=== PATIENT | female | born 1965 | race Caucasian/White ===

== ENCOUNTER 2020-05-24 09:06 | Day surgery (SDC) | payer BC, OTHER ==
[2020-05-19 11:43] LABS: HEMATOCRIT 39.3 % (36.0-47.0); HEMOGLOBIN 13.1 g/dL (12.0-15.5); MEAN CORPUSCULAR HEMOGLOBIN 31.6 pg (27.0-33.4); MEAN CORPUSCULAR HGB CONC 33.3 g/dL (32.0-36.0); MEAN CORPUSCULAR VOLUME 95 fl (80-97); PLATELET COUNT 395 10^3/uL (150-450); RED BLOOD COUNT 4.14 10^6/uL (3.72-5.28); RED CELL DISTRIBUTION WIDTH 16.7 % (11.5-14.0); WHITE BLOOD COUNT 6.9 10^3/uL (4.0-10.5)
[2020-05-19 11:51] LABS: INTERNATIONAL RATION (INR) 0.89; PROTHROMBIN TIME 12.3 SEC (11.4-15.4)
[2020-05-19 11:52] LABS: PARTIAL THROMBOPLASTIN TIME 31.4 SEC (23.5-35.8)
[2020-05-19 12:07] LABS: APPEARANCE,URINE CLEAR; BILIRUBIN,URINE NEGATIVE (NEGATIVE); COLOR,URINE YELLOW; GLUCOSE, URINE NEGATIVE (NEGATIVE); KETONES,URINE NEGATIVE (NEGATIVE); LEUKOCYTE ESTERASE,URINE NEGATIVE (NEGATIVE); NITRITE,URINE NEGATIVE (NEGATIVE); PROTEIN,URINE NEGATIVE (NEGATIVE); URINE SPECIFIC GRAVITY 1.011; UROBILINOGEN,URINE NEGATIVE mg/dL (<2.0)
--- NOTE | 2020-05-19 12:46 | EKG REPORT ---
SEVERITY:- NORMAL ECG - SINUS RHYTHM : Confirmed by: Adrian Herrera MD 19-May-2020 12:46:19
--- NOTE | 2020-05-19 12:58 | RADIOLOGY REPORT (SQ) ---
EXAM DESCRIPTION: CHEST PA/LATERAL IMAGES COMPLETED DATE/TIME: 05/19/2020 11:28 am REASON FOR STUDY: PRE-OP COMPARISON: None. EXAM PARAMETERS: NUMBER OF VIEWS: two views TECHNIQUE: Digital Frontal and Lateral radiographic views of the chest acquired. RADIATION DOSE: NA LIMITATIONS: none FINDINGS: LUNGS AND PLEURA: No opacities, masses or pneumothorax. No pleural effusion. MEDIASTINUM AND HILAR STRUCTURES: No masses or contour abnormalities. HEART AND VASCULAR STRUCTURES: Heart normal size. No evidence for failure. BONES: No acute findings. HARDWARE: Neurostimulator electrodes in the thoracic spine. OTHER: No other significant finding. IMPRESSION: NO SIGNIFICANT RADIOGRAPHIC FINDING IN THE CHEST. TECHNICAL DOCUMENTATION: JOB ID: [id number] 2010 [email or web address]- All Rights Reserved Reading location - IP/workstation name: [email or web address]
[~2020-05-24 09:06] MED LIST: CEFAZOLIN 1 GM/D5W RTU 1 GM/50 ML RTUPB IV PRN; LACTATED RINGERS 1000 ML IV PRN
[2020-05-24] MEDS ORDERED: CEFAZOLIN 1 GM/D5W RTU 1 GM/50 ML RTUPB IV ONE (10:16)
[2020-05-24] MEDS ORDERED: TRIAMCINOLONE ACETONIDE INJ 40 MG/1 ML VIAL ONE (10:37)
[2020-05-24] MEDS ORDERED: LIDOCAINE 1% INJ-PF (10 MG/ML) 30 ML SDV ONE (10:37)
[2020-05-24] MEDS ORDERED: SODIUM BICARBONATE 4.2% INJ (2.5 MEQ/5 ML) VIAL ONE (10:37)
[2020-05-24] MEDS ORDERED: BUPIVACAINE HCL 0.25% /EPINEPHRINE INJ/PF 30 ML SDV ONE (10:37)
[2020-05-24] MEDS ORDERED: KETAMINE HCL INJ 500 MG/10 ML VIAL ONE (11:02)
[2020-05-24] MEDS ORDERED: MIDAZOLAM 2 MG/2 ML INJ ONE ×2 (11:02→12:37)
[2020-05-24] MEDS ORDERED: PROPOFOL INJ 200 MG/20 ML VIAL IV ONE (11:03)
[2020-05-24] MEDS ORDERED: HYDROMORPHONE HCL INJ/PF 2 MG/ML AMPULE ONE (11:03)
[2020-05-24] MEDS ORDERED: CEFAZOLIN INJ 1 GM VIAL ONE (13:01)
--- NOTE | 2020-05-24 13:18 | Operative Report ---
Operative Report DATE OF SURGERY: 05/24/20 PREOPERATIVE DIAGNOSIS: 1. Postlaminectomy pain syndrome #2 non-functioning sp inal cord stimulator system POSTOPERATIVE DIAGNOSIS: same OPERATION: 1 revision of spinal cord stimulator system, explantation of existing system, with implantation new system/[employer] #2 complex reprogramming #3 fluoroscopy for lead placement SURGEON: EVELYN JHA 1ST EDITORIAL DIRECTOR: MENDOZA OWENS ANESTHESIA: LMAC TISSUE REMOVED OR ALTERED: Existing spinal cord stimulation system was removed and discarded COMPLICATIONS: None ESTIMATED BLOOD LOSS: Minimal INTRAOPERATIVE FINDINGS: New spinal cord system with dual electrode leads placed at the top of the T8 vertebral body to the top of the T9 vertebral body PROCEDURE: Date of Surgery: May 24, 2020 Preoperative Diagnosis: 1. Faliure of in-situ Spinal Cord Stimulator Device. 2. Post Laminectomy Pain Syndrome Postoperative Diagnosis:Same Procedure: 1. Removal of existing spinal cord stimulator system. 2. SCS Electrode Placement with Impulse Generator. 3. Complex Reprogramming. 4. Fluoroscopic guidance for lead placement. Surgeon: Evelyn Jha MD Court Specialist: Mendoza Owens MD Anesthesia: MAC Complications: None Procedure Detail: After obtaining informed consent and advising the patient of the risks and benefits, including serious neurological injury, bleeding and infection, allergic reaction and , the patient was taken to the operating room. After discussion with the patient, the previous incision sites were marked. The patient was then prepped with chlorhexidine with a suitable drying time prior to draping. The patient was evaluated under fluoroscopy in the AP view. The anchor sites for the existing leads were marked. An midline incision was marked to allow adequate exposure of the existing leads. An additional incision was made over the left buttock where the existing implantable pulse generator was in place. The skin overlying both the midline and IPG sites were anesthetized with 1% lidocaine with bicarbonate, followed by bupivacaine 0.25% with epinephrine. Beginning with the pocket incision a 15 blade scalpel was utilized to expose the existing implantable pulse generator. This was easily removed from the pocket and the leads were disconnected from the IPG. Attention was then turned to the midline incision. Sharp and blunt dissection were performed down to the underlying fascia. Once the pre-existing anchors and leads were exposed the anchors were excised and the leads were easily removed. At this juncture the deep tissues were anesthetized with 1% buffered lidocaine using a 3.5 inch spinal needle. Then, using a left paramedian approach, a 14 gauge Tuohy needle was placed in the epidural space at the T11/12 using a loss or resistance to saline technique. A second needle using a right paramedian approach was placed in the epidural space in the same manner. An electrode was inserted through each needle and advanced under serial fluoroscopy views to the top of T8 vertebral body on the right and left. After placement, lateral imaging was obtained for appropriate posterior position in the epidural space. The leads were then tested and appropriate stimulation was found after discussion with the patient. The leads were then secured using 0-Mersilene pursetrings with anchors in place. The anchors were then sututred in place. The needles were remove sequentially under fluoroscopic guidance. The anchors and pursestrings were secured. While lead positioning was occurring, Dr. Owens was assisting revising the pocket for the pulse generator. As soon as the pocket was made, proper hemostasis was confirmed. The skin between the midline and IPG pocket was then anesthetized with 1% lidocaine. A tunneling tool was then utilized to bring the midline electrodes to the IPG pocket. Both sites were then inspected with appropriate hemostasis. The wires were easily placed in the midline, stitched to the pocket, connected to the pulse generator which was then tested with appropriate communication. All connections were then secured and confirmed. The generator was connected to the electrodes. All hex nuts were secured. The generator was placed in the pocket and impedance was tested and was felt to be satisfactory. Good connectivity with the new generator was obtained. The wounds were then copiously irrigated with Betadine containing irrigation solution. The sites were then closed with interrupted vertical mattress sutures with 3-0 Polysorb. The skin came together nicely. The region was cleansed again followed by placement of dermabond tape and cement. When this was dry, suitable tegaderm sponge dressings were placed. The patient was then taken back to PACU for postoperative care and monitoring.
[2020-05-24] MEDS ORDERED: OXYCODONE-ACETAMINOPHEN 5-325 MG TABLET PO PRN (14:03)
--- NOTE | 2020-05-24 14:12 | RADIOLOGY REPORT (SQ) ---
EXAM DESCRIPTION: NO CHG FLUORO; THORACOLUMBAR SPINE AP/LAT IMAGES COMPLETED DATE/TIME: 05/24/2020 1:46 pm REASON FOR STUDY: SPINAL STIMULATOR PLCMT ASSISTED WITH FLUORO IN OR M96.1 POSTLAMINECTOMY SYNDROME , NOT ELSEWHERE CLASSIFIED COMPARISON: None. FLUOROSCOPY TIME: 5.7 minutes 12 images saved to PACS. TECHNIQUE: Intra-operative images acquired during surgical procedure to evaluate progress. NUMBER OF IMAGES: 12 LIMITATIONS: None. FINDINGS: Thoracic neurostimulator placement. IMPRESSION: IMAGE(S) OBTAINED DURING PROCEDURE. COMMENT: Quality ID [id number]: Final reports for procedures using fluoroscopy that document radiation exp osure indices, or exposure time and number of fluorographic images (if radiation exposure indices are not available) Please consult full operative report of the attending physician for description of the procedure. TECHNICAL DOCUMENTATION: JOB ID: [id number] 2010 [employer]- All Rights Reserved Reading location - IP/workstation name: [email or web address]
--- NOTE | 2020-05-24 14:12 | RADIOLOGY REPORT (SQ) ---
EXAM DESCRIPTION: NO CHG FLUORO; THORACOLUMBAR SPINE AP/LAT IMAGES COMPLETED DATE/TIME: 05/24/2020 1:46 pm REASON FOR STUDY: SPINAL STIMULATOR PLCMT ASSISTED WITH FLUORO IN OR M96.1 POSTLAMINECTOMY SYNDROME , NOT ELSEWHERE CLASSIFIED COMPARISON: None. FLUOROSCOPY TIME: 5.7 minutes 12 images saved to PACS. TECHNIQUE: Intra-operative images acquired during surgical procedure to evaluate progress. NUMBER OF IMAGES: 12 LIMITATIONS: None. FINDINGS: Thoracic neurostimulator placement. IMPRESSION: IMAGE(S) OBTAINED DURING PROCEDURE. COMMENT: Quality ID [id number]: Final reports for procedures using fluoroscopy that document radiation exp osure indices, or exposure time and number of fluorographic images (if radiation exposure indices are not available) Please consult full operative report of the attending physician for description of the procedure. TECHNICAL DOCUMENTATION: JOB ID: [id number] 2010 [employer]- All Rights Reserved Reading location - IP/workstation name: [email or web address]
[2020-05-24] MEDS ORDERED: OXYCODONE-ACETAMINOPHEN 5-325 MG TABLET ONE (14:19)
[2020-05-24 16:03] VITALS: BP 116/76
== END 2020-05-24 15:20 | disposition home or self-care (01) ==
LOC: OROUT 09:06
PROVIDERS: ATTEND Pain Medicine Interventional Pain Medicine
DX: M96.1 Postlaminectomy syndrome, not elsewhere classified (principal); G89.4 Chronic pain syndrome; M54.16 Radiculopathy, lumbar region; G43.019 Migraine without aura, intractable, without status migrainosus; M54.5 Low back pain; M25.559 Pain in unspecified hip; Z51.81 Encounter for therapeutic drug level monitoring; M54.2 Cervicalgia; M79.10 Myalgia, unspecified site; Z03.818 Encounter for observation for suspected exposure to other biological agents ruled out; E78.00 Pure hypercholesterolemia, unspecified; Z79.899 Other long term (current) drug therapy; I34.1 Nonrheumatic mitral (valve) prolapse; E03.9 Hypothyroidism, unspecified; R01.1 Cardiac murmur, unspecified
CPT/HCPCS: 93005; 36415; 85027; 85610; 85730; 81001; 71046; 72080; 93010; 00300; 63688; C1776; C1820 ×2; C1713; U0003; J2250; J3490 ×4; J0690 ×2; J1170; J2704; C9803; 300; 87635; J3301